=== PATIENT | female | born 1980 | race Two or more races ===

== ENCOUNTER 2017-09-27 09:21 | Emergency (ER) | payer OTHER ==
[~2017-09-27] VITALS: Ht 172.7 cm; Wt 92.5 kg
[2017-09-27 09:25] VITALS: BP 135/77
== END 2017-09-27 12:28 | disposition home or self-care (01) ==
LOC: ER 09:23
DX: S90.01XA Contusion of right ankle, initial encounter (principal); J18.9 Pneumonia, unspecified organism; Y95 Nosocomial condition; Z90.89 Acquired absence of other organs; X58.XXXA Exposure to other specified factors, initial encounter; Y93.89 Activity, other specified; Y92.89 Other specified places as the place of occurrence of the external cause; Y99.8 Other external cause status
CPT/HCPCS: 73110; 73610; 99284; A4606; Z7610